=== PATIENT | male | born 1950 | race Caucasian/White ===

== ENCOUNTER → 2018-06-07 | Outpatient (CLI) | payer OTHER ==
[~2018-06-07] MED LIST: Adult Low Dose81 MG PO; Advil200 M1; B Complex1 EAC2 PO; FISH1000 PO; GLUC500 PO; LISI5 PO; METF500 PO; MULVITMIND; PRAV20 PO; Prilosec Otc20 MG; Vitamin C100 M1
== END | disposition home or self-care (01) ==
LOC: LAB SHORT 14:10 → LAB EV 14:10
DX: E11.9 Type 2 diabetes mellitus without complications (principal)
CPT/HCPCS: 82043

== ENCOUNTER → 2019-08-28 | Outpatient (CLI) | payer OTHER | END | disposition home or self-care (01) | LOC: PLD 07:54 → LAB SHORT 07:54 | DX: L82.1 Other seborrheic keratosis (principal) | CPT/HCPCS: 88305 ==